=== PATIENT | male | born 1990 | race Caucasian/White ===

== ENCOUNTER 2018-03-10 10:58 | Emergency (ER) | payer OTHER ==
[~2018-03-10] VITALS: Ht 177.8 cm; Wt 63.5 kg
[2018-03-10 11:09] VITALS: BP 135/91
--- NOTE | 2018-03-10 11:41 | RADIOLOGY REPORT ---
EXAMINATION: XR HAND, LEFT CLINICAL INFORMATION: Swelling and pain in the left hand. COMPARISON: 09/09/2009 TECHNIQUE: PA, lateral, and oblique views of the left hand. FINDINGS: There is a nondisplaced oblique fracture of the fifth metacarpal at the level of the proximal shaft. No additional fractures are identified. Mild soft tissue swelling. Joints are well-preserved. IMPRESSION: Nondisplaced fracture of the fifth metacarpal shaft.
--- NOTE | 2018-03-10 11:57 | ED HAND/WRIST INJURY COMPLAINT ---
History of Present Illness General Chief Complaint: Hand or Wrist Injury Stated Complaint: S/P HAND INJURY SWELLING NOTED Source: patient Exam Limitations: no limitations Vital Signs & Intake/Output Vital Signs & Intake/Output Vital Signs Date Time Temp Pulse Resp B/P B/P Pulse O2 O2 Flow FiO2 Mean Ox Delivery Rate 03/10 1149 Room Air 03/10 1109 98.4 83 18 135/91 98 Room Air Allergies Coded Allergies: No Known Allergies (03/10/18) Triage Note: 27 YO MALE TO TRIAGE DYLON PALACIOS HAND PAIN S/P HITTING IT ON THE SIDE OF THE POOL YESTERDAY. NOTED WITH SLIGHT SWELLING TO SIDE OF HAND. HAND SPLINTED AND ICE PACK APPLIED. Triage Nurses Notes Reviewed? yes Occurred: just prior to arrival Duration: hour(s): Timing: single episode today Injury Environment: home Severity: moderate, severe Pain/Injury Location: Right: Hand. Method of Injury: direct blow HPI: 27-year-old male comes into the emergency room for further evaluation of right hand pain. Patient reports that he was jumping into a pool and when he jumped and he smashed his right hand down on the cement on the side of the pool. Pain since then. Associated swelling. Comes in for further evaluation. Denies any injury or trauma anywhere else. Past History Travel History Traveled to [place] past 21 day No Medical History Any Pertinent Medical History? see below for history Neurological: NONE EENT: NONE Cardiovascular: NONE Respiratory: NONE Gastrointestinal: NONE Hepatic: NONE Renal: NONE Musculoskeletal: NONE Psychiatric: NONE Endocrine: NONE Blood Disorders: NONE Cancer(s): hodgkins lymphoma, 10 YRS AGO-IN REMISSION Surgical History Surgical History: non-contributory Psychosocial History What is your primary language Kinyarwanda Tobacco Use: Never used Family History Hx Contributory? No Review of Systems Review of Systems Constitutional: Reports: no symptoms. EENTM: Reports: no symptoms. Respiratory: Reports: no symptoms. Cardiovascular: Reports: no symptoms. GI: Reports: no symptoms. Genitourinary: Reports: no symptoms. Musculoskeletal: Reports: see HPI. Skin: Reports: no symptoms. Neurological/Psychological: Reports: no symptoms. Hematologic/Endocrine: Reports: no symptoms. Immunologic/Allergic: Reports: no symptoms. All Other Systems: Reviewed and Negative Physical Exam Physical Exam General Appearance: well developed/nourished, mild distress Head: atraumatic Eyes: Bilateral: normal appearance. Ears, Nose, Throat: normal ENT inspection, hearing grossly normal Neck: normal inspection Cardiovascular/Respiratory: no respiratory distress Back: normal inspection Wrist Left: normal range of motion, normal inspection Hand Left: swelling, tender (LEFT Fifth metacarpal) Hand Right: normal inspection Neurologic/Tendon: normal sensation, normal motor functions, normal tendon functions, responds to pain, no evidence tendon injury, no pulse deficit Skin: intact, normal color, warm/dry Progress Differential Diagnosis: contusion, dislocation, fracture, sprain, tenosynovitis Plan of Care: Orders Procedure Date/time Status Durable Medical Equipment 03/10 1204 Active Diagnostic Imaging: Viewed by Me: Radiology Read. Discussed w/RAD: Radiology Read. Radiology Impression: PATIENT: GRACE BOYD PRESENT AGE: 27 PATIENT ACCOUNT NO: [id number] : 92 LOCATION: [facility] ORDERING PHYSICIAN: Brandon Gayle DO (TBS) SERVICE DATE: 03/10/18 EXAM TYPE: RAD - XRY-HAND, LEFT EXAMINATION: XR HAND, LEFT CLINICAL INFORMATION: Swelling and pain in the left hand. COMPARISON: 09/09/2009 TECHNIQUE: PA, lateral, and oblique views of the left hand. FINDINGS: There is a nondisplaced oblique fracture of the fifth metacarpal at the level of the proximal shaft. No additional fractures are identified. Mild soft tissue swelling. Joints are well- preserved. IMPRESSION: Nondisplaced fracture of the fifth metacarpal shaft. 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 <Electronically signed in Other Vendor System> SIGNED BY: Rex Banks MD 03/10/18 1141 Departure Departure Disposition: HOME OR SELF CARE Condition: Stable Clinical Impression Primary Impression: Left hand fracture Referrals: Twila MENDOZA,Henri Davidson Patient Has No Primary Care Dr (PCP/Family) Additional Instructions: Take ibuprofen for pain. Follow-up with orthopedic doctor. Return if any concerns worsening symptoms. Please go over all results of today's visit with your primary care doctor. Contact your primary care doctor to let them know you were here in the emergency room. There may be nonspecific findings which may not be related to your visit today here in the emergency room but may require further evaluation and chronic monitoring by your primary care doctor. If you had a laceration today the chance of foreign body always remains. You should follow-up with your primary care doctor for recheck in 3-5 days for a wound check. If you had an x-ray done there is a chance that a fracture could have been missed on initial read and you should follow-up with your primary care doctor for repeat x-rays if symptoms persist. If your blood pressure was elevated here in the emergency room please have rechecked by [facility] primary care doctor within the next 48. If you were prescribed a narcotic here in the emergency room or any type of controlled substances you're not allowed to drive while taking this medication or operate any type of heavy machinery. Narcotics can make you feel lightheaded dizziness nausea and can cause constipation. You may need to warehouse order picker a stool softener. Thank you for choosing [facility] emergency room. Please return to the emergency room immediately if you have any other concerns worsening of symptoms. Departure Forms: Customer Survey General Discharge Information Comments 03/10/2018 1:36:06 PM Patient clinically looks well. Patient is no apparent distress. Patient is nontoxic-appearing. Follow-up with orthopedic doctor. Return if any other concerns worsening symptoms. Procedures Splinting Location: LEFT HAND Manual Alignment Performed: No Hand-Made Type: orthoglass Splint: volar Splint Applied By: splint applied by me Pre-Proc Neuro Vasc Exam: normal Post-Proc Neuro Vasc Exam: normal
== END 2018-03-10 12:00 ==
LOC: ERH 10:58
DX: S62.327A Displaced fracture of shaft of fifth metacarpal bone, left hand, initial encounter for closed fracture (principal); W16.532A Jumping or diving into swimming pool striking wall causing other injury, initial encounter; Y93.11 Activity, swimming; Y92.009 Unspecified place in unspecified non-institutional (private) residence as the place of occurrence of the external cause
CPT/HCPCS: 73130-LT